=== PATIENT | female | born 2000 | race Caucasian/White ===

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

== ENCOUNTER → 2020-04-01 | Outpatient (REF) | payer OTHER | LOC: M LABDRWAD 15:47 | PROVIDERS: ATTEND Physician Assistant | DX: N91.1 Secondary amenorrhea (principal); R11.0 Nausea ==

== ENCOUNTER → 2022-07-16 | Outpatient (REF) | payer OTHER | LOC: M SFHCADAM 11:40 | PROVIDERS: ATTEND Physician Assistant Medical | DX: F41.0 Panic disorder [episodic paroxysmal anxiety] (principal); Z3A.01 Less than 8 weeks gestation of pregnancy ==

== ENCOUNTER 2022-07-23 11:14 | Emergency (ER) | payer OTHER ==
[~2022-07-23] VITALS: Ht 160 cm; Wt 57.6 kg
[2022-07-23 13:27] LABS: BASO # 0.1 10^3/uL (0.0-0.2); BASO % 0.9 % (0.0-1.0); EOS # 0.1 10^3/uL (0.0-0.5); EOS % 0.7 % (0.0-3.0); HEMATOCRIT 42.9 % (36.0-47.0); HEMOGLOBIN 14.2 g/dl (12.0-15.5); LYMPH # 1.8 10^3/uL (1.5-5.0); LYMPH % 25.5 % (24.0-44.0); MEAN CORPUSCULAR HEMOGLOBIN 28.8 pg (27.0-33.0); MEAN CORPUSCULAR HGB CONC 33.1 g/dl (32.0-36.5); MONO # 0.5 10^3/uL (0.0-0.8); MONO % 7.4 % (2.0-8.0); NEUTROPHILS # 4.5 10^3/uL (1.5-8.5); NEUTROPHILS % 65.2 % (36.0-66.0); PLATELET COUNT, AUTOMATED 298 10^3/uL (150-450); RED BLOOD COUNT 4.93 10^6/uL (4.00-5.40); WHITE BLOOD COUNT 6.9 10^3/uL (4.0-10.0)
[2022-07-23 13:59] VITALS: BP 133/78
== END 2022-07-23 14:01 | disposition home or self-care (01) ==
LOC: M ED 11:14
DX: O20.9 Hemorrhage in early pregnancy, unspecified (principal); Z3A.01 Less than 8 weeks gestation of pregnancy

== ENCOUNTER → 2022-07-25 | Outpatient (CLI) | payer OTHER | LOC: M LAB 15:51 | PROVIDERS: ATTEND Internal Medicine | DX: O46.90 Antepartum hemorrhage, unspecified, unspecified trimester (principal) ==

== ENCOUNTER → 2022-08-05 | Outpatient (CLI) | payer OTHER | LOC: M LAB 15:49 | PROVIDERS: ATTEND Advanced Practice Midwife | DX: O03.9 Complete or unspecified spontaneous abortion without complication (principal) ==

== ENCOUNTER 2024-02-18 10:05 | Emergency (ER) | payer OTHER ==
[~2024-02-18] VITALS: Ht 160 cm; Wt 53.6 kg
[~2024-02-18 10:05] MED LIST changes: -MEDR150I10; +MEDR150I13
[2024-02-18] MEDS: IBUPROFEN 600MG TAB PO ONE (11:36)
[2024-02-18] MEDS ORDERED: IBUP-1022 PO (13:12)
[2024-02-18] MEDS ORDERED: METH-1165 PO (13:12)
[2024-02-18 13:16] VITALS: BP 131/78; TEMP 98.2; O2SAT 100
== END 2024-02-18 13:32 | disposition home or self-care (01) ==
LOC: M ED 10:05
DX: S13.4XXA Sprain of ligaments of cervical spine, initial encounter (principal); S43.402A Unspecified sprain of left shoulder joint, initial encounter; X50.0XXA Overexertion from strenuous movement or load, initial encounter; Y92.009 Unspecified place in unspecified non-institutional (private) residence as the place of occurrence of the external cause; Y93.89 Activity, other specified; Y99.9 Unspecified external cause status; Z79.1 Long term (current) use of non-steroidal anti-inflammatories (NSAID); Z79.899 Other long term (current) drug therapy

== ENCOUNTER → 2025-02-15 | Outpatient (CLI) | payer MEDICAID, OTHER, SELFPAY ==
[~2025-02-15] MED LIST changes: +IBUP-1022 PO; +METH-1165 PO
== END ==
LOC: M PLALAB 09:11
PROVIDERS: ATTEND Advanced Practice Midwife
DX: O20.9 Hemorrhage in early pregnancy, unspecified (principal)

== ENCOUNTER → 2025-02-17 | Outpatient (CLI) | payer SELFPAY | LOC: M LAB 09:40 | PROVIDERS: ATTEND Advanced Practice Midwife | DX: O20.9 Hemorrhage in early pregnancy, unspecified (principal) ==

== ENCOUNTER → 2025-03-12 | Outpatient (CLI) | payer OTHER | LOC: M LABDRWAD 10:36 | PROVIDERS: ATTEND Advanced Practice Midwife | DX: O03.9 Complete or unspecified spontaneous abortion without complication (principal) ==

== ENCOUNTER → 2025-03-14 | Outpatient (CLI) | payer OTHER ==
[2025-03-14 16:34] LABS: FOLLICLE STIMULATING HORMONE 4.6 mIU/ML; LUTEINIZING HORMONE 5.4 mIU/ML
[2025-03-14 16:35] LABS: ESTRADIOL 128.9 PG/ML; PROLACTIN 7.65 NG/ML
[2025-03-14 16:41] LABS: PROGESTERONE 9.19 NG/ML
[2025-03-16 14:22] LABS: HPV APTIMA Not Detected (Not Detected)
== END ==
LOC: M PLALAB 13:54
PROVIDERS: ATTEND Nurse Practitioner Family
DX: Z12.4 Encounter for screening for malignant neoplasm of cervix (principal); R87.610 Atypical squamous cells of undetermined significance on cytologic smear of cervix (ASC-US)

== ENCOUNTER → 2025-04-30 | Outpatient (CLI) | payer OTHER | LOC: M RAD 14:07 | PROVIDERS: ATTEND Nurse Practitioner Family | DX: Z31.69 Encounter for other general counseling and advice on procreation (principal) ==

== ENCOUNTER → 2025-05-30 | Outpatient (REF) | payer OTHER ==
[2025-05-30 13:50] LABS: FREE T4 1.36 NG/DL (0.89-1.76)
[2025-05-30 13:59] LABS: THYROID PEROXIDASE ANTIBODY < 28.0 U/ML (<60.0); TOTAL T3 118.5 NG/DL (60.0-181.0)
== END ==
LOC: M SFHCADAM 10:26
PROVIDERS: ATTEND Physician Assistant Medical
DX: E05.90 Thyrotoxicosis, unspecified without thyrotoxic crisis or storm (principal)

== ENCOUNTER → 2025-08-17 | Outpatient (CLI) | payer OTHER ==
[~2025-08-17] MED LIST changes: -IBUP-1022 PO; +IBUP600T42 PO
== END ==
LOC: M RAD 10:43
PROVIDERS: ATTEND Nurse Practitioner Family
DX: R94.6 Abnormal results of thyroid function studies (principal)

== ENCOUNTER → 2025-09-07 | Outpatient (REF) | payer OTHER ==
[2025-09-07 18:36] LABS: TOTAL T3 129.2 NG/DL (60.0-181.0)
[2025-09-07 18:37] LABS: FREE T4 1.31 NG/DL (0.89-1.76)
== END ==
LOC: M LABDRWAD 17:31
PROVIDERS: ATTEND Nurse Practitioner Family
DX: R94.6 Abnormal results of thyroid function studies (principal)